=== PATIENT | female | born 1960 | race Caucasian/White ===

== ENCOUNTER → 2017-09-02 | Outpatient (CLI) | payer BC ==
[~2017-09-02] MED LIST: COUMADIN1 MG PO; LOSARTAN POTASS50 MG PO; MIRENA52 MG IY; NAPROSYN500 MG PO; PERCOCET 5/31 TABLET PO; TRAMADOL HCL50 MG PO; VISTARIL25 MG PO; VITAMIN D-32000 UNI1 PO
== END | disposition home or self-care (01) ==
LOC: CDC 14:21
DX: I10 Essential (primary) hypertension (principal)
CPT/HCPCS: 93000